=== PATIENT | male | born 1985 | race Caucasian/White ===

== ENCOUNTER 2023-11-07 13:58 | Inpatient (IN) | payer BC, OTHER ==
[~2023-11-07] VITALS: Ht 177.8 cm; Wt 111.0 kg
[2023-11-07] MEDS ORDERED: ONDANSETRON HCL 4 MG/2 ML VIAL IV ONE (14:30)
[2023-11-07 14:41] LABS: Basophils # (auto) 0.1 10 ^3/uL (0-0.2); Basophils % (auto) 1.1 % (0.0-2.0); Eosinophils # (auto) 0.2 10 ^3/uL (0-0.8); Eosinophils % (auto) 2.4 % (0.0-7.0); Hematocrit 36.4 % (41.0-53.0); Hemoglobin 12.3 g/dL (13.5-17.5); Lymphocytes # (auto) 1.1 10 ^3/uL (0.4-5.4); Lymphocytes % (auto) 12.6 % (10.0-50.0); Mean Corpuscular Hemoglobin 30.4 pg (28.0-32.0); Mean Corpuscular Hgb Conc. 33.7 g/dL (32.0-36.0); Mean Corpuscular Volume 90.2 fL (80.0-100.0); Monocytes # (auto) 0.8 10 ^3/uL (0-1.3); Monocytes % (auto) 9.7 % (0.0-12.0); Neutrophils # (auto) 6.3 10 ^3/uL (1.6-8.6); Neutrophils % (auto) 74.2 % (37.0-80.0); Red Blood Cells 4.04 10^6/uL (4.5-5.90); Red Cell Distribution Width 14.4 % (11.8-14.3); White Blood Cell 8.5 10^3/uL (4.4-10.8)
[2023-11-07 15:00] LABS: Alanine Aminotransferase 10 U/L (7-40); Albumin 3.7 g/dL (3.2-4.8); Alkaline Phosphatase 41 U/L (46-116); Anion Gap 7 (5-15); Aspartate Aminotransferase < 8 U/L (13-40); BUN/Creatinine Ratio 7.1 (10.0-20.0); Bilirubin, Total 0.2 mg/dL (0.2-1.0); Blood Urea Nitrogen 46 mg/dL (9-23); Calcium 9.6 mg/dL (8.7-10.4); Carbon Dioxide 27 mmol/L (20-30); Chloride 102 mmol/L (98-107); Glucose 165 mg/dL (74-106); Potassium 4.1 mmol/L (3.5-5.1); Sodium 136 mmol/L (136-145)
[2023-11-07] MEDS: METOCLOPRAMIDE HCL 5MG/ml INJ 2ml VIAL IV ONE (15:09)
[2023-11-07] MEDS: SODIUM CHLORIDE 0.9% 1,000 ML IV ONE (15:09)
[2023-11-07] MEDS: MORPHINE SULFATE INJ 2 MG/ml SYRG IV ONE (15:12)
[2023-11-07] MEDS ORDERED: metroNIDAZOLE 500MG/100ML 100 ML IV ONE (15:30)
[2023-11-07] MEDS: cefTRIAXone 1GM/50ML D5W 50 ML IV ONE (15:44)
[2023-11-07 16:15] VITALS: BP 150/88; PULSE 72; RESP 18; TEMP 98.4; O2SAT 94
[2023-11-07] MEDS ORDERED: DEXTROSE (50%) 50ML SYRG IV PRN (16:30)
[2023-11-07] MEDS ORDERED: ONDANSETRON HCL 4 MG/2 ML VIAL IV PRN (16:30)
[2023-11-07] MEDS ORDERED: ACETAMINOPHEN 325 MG TAB PO PRN (16:30)
[2023-11-07 19:47] VITALS: BP 150/88; PULSE 72; RESP 18; TEMP 98.4; O2SAT 94
[2023-11-07 20:30] VITALS: BP 150/88; PULSE 72; RESP 18; TEMP 98.4; O2SAT 94
[2023-11-07] MEDS ORDERED: FURO80TA3 PO (20:47)
[2023-11-07] MEDS ORDERED: LOSA-535 PO (20:47)
[2023-11-07] MEDS ORDERED: ATOR20TA50 PO (20:47)
[2023-11-07] MEDS ORDERED: GAB100C PO (20:47)
[2023-11-07 21:11] VITALS: BP 148/97; PULSE 77; RESP 18; TEMP 99.2; O2SAT 95
[2023-11-07] MEDS: metroNIDAZOLE 500 MG TAB PO SCH (21:14)
[2023-11-07] MEDS: InsuLIN REG 1unit/0.01ml Soln (100units/ml) SC SCH (23:31)
[2023-11-07] MEDS: ACCU-CHEK COMFORT CURVE STRIP VI SCH (23:33)
[2023-11-07 23:43] LABS: Urine Bacteria FEW /hpf (None Seen); Urine Blood 1+ /uL (Negative); Urine Clarity Clear (Clear); Urine Color Colorless (Yellow); Urine Protein, UAD 2+ (Negative); Urine Specific Gravity 1.007 (1.001-1.035); Urine Sperm PRESENT /hpf (None Seen); Urine Urobilinogen Normal (Negative); Urine WBC 1 /hpf (0 - 3); Urine pH 6.5 (5.0-9.0)
[2023-11-07 23:57] LABS: Amphetamine Screen, Urine Neg (NEGATIVE); Barbiturate Scree,Urine Neg (NEGATIVE); Benzodiazephine Screen, Urine Neg (NEGATIVE); Cannabinoid Screen, Urine Neg (NEGATIVE); Cocaine Screen, Urine Neg (NEGATIVE); Opiate Scree,Urine Neg (NEGATIVE); Phencyclidine Screen, Urine Neg (NEGATIVE)
[2023-11-08] MEDS: HYDROcodone-ACET 5/325MG TAB PO PRN (01:02)
[2023-11-08 06:19] VITALS: BP 120/77; PULSE 75; RESP 18; TEMP 99; O2SAT 95
[2023-11-08 06:59] LABS: Basophils # (auto) 0.1 10 ^3/uL (0-0.2); Basophils % (auto) 1.1 % (0.0-2.0); Eosinophils # (auto) 0.1 10 ^3/uL (0-0.8); Eosinophils % (auto) 1.5 % (0.0-7.0); Hematocrit 37.7 % (41.0-53.0); Hemoglobin 12.4 g/dL (13.5-17.5); Lymphocytes # (auto) 1.5 10 ^3/uL (0.4-5.4); Lymphocytes % (auto) 16.8 % (10.0-50.0); Mean Corpuscular Hemoglobin 30.2 pg (28.0-32.0); Mean Corpuscular Hgb Conc. 32.8 g/dL (32.0-36.0); Mean Corpuscular Volume 91.9 fL (80.0-100.0); Monocytes # (auto) 1.1 10 ^3/uL (0-1.3); Monocytes % (auto) 12.7 % (0.0-12.0); Neutrophils # (auto) 6.1 10 ^3/uL (1.6-8.6); Neutrophils % (auto) 67.9 % (37.0-80.0); Red Cell Distribution Width 14.8 % (11.8-14.3)
[2023-11-08 07:10] LABS: Chloride 104 mmol/L (98-107); Potassium 3.9 mmol/L (3.5-5.1); Sodium 137 mmol/L (136-145)
[2023-11-08 07:11] LABS: Anion Gap 7 (5-15); Carbon Dioxide 26 mmol/L (20-30)
[2023-11-08 07:12] LABS: Calcium 9.2 mg/dL (8.5-10.1)
[2023-11-08 07:17] LABS: Blood Urea Nitrogen 38 mg/dL (9-23); Glucose 144 mg/dL (74-106)
[2023-11-08 09:00] VITALS: BP 133/77; PULSE 71; RESP 18; TEMP 98.6; O2SAT 98
[2023-11-08] MEDS: cefTRIAXone 1GM/50ML D5W 50 ML IV SCH (10:52)
[2023-11-08] MEDS: amLODIPine BESYLATE 5 MG TAB PO SCH (10:56)
[2023-11-08] MEDS ORDERED: MORPHINE SULFATE INJ 2 MG/ml SYRG IV PRN (11:30)
[2023-11-08 11:59] LABS: Magnesium 2.1 mg/dL (1.6-2.6)
[2023-11-08 12:00] LABS: Phosphorus 4.2 mg/dL (2.4-5.1)
[2023-11-08 13:00] VITALS: BP 132/65; PULSE 75; TEMP 98.3; O2SAT 98
[2023-11-08 13:38] LABS: Hepatitis B Surface Antigen Negative (Negative)
[2023-11-08 13:59] LABS: Hepatitis C Antibody Negative (Negative)
[2023-11-08 18:23] VITALS: BP 134/71; PULSE 82; RESP 18; TEMP 98.6; O2SAT 93
[2023-11-08 21:00] VITALS: BP 133/56; PULSE 85; RESP 18; TEMP 99.4; O2SAT 94
[2023-11-09] VITALS (7 sets, daily range): BP systolic 132–156; BP diastolic 58–87; PULSE 75–77; RESP 16–18; TEMP 97.5–98.4; O2SAT 93–97
[2023-11-09 11:50] LABS: Chloride 104 mmol/L (98-107); Potassium 4.3 mmol/L (3.5-5.1); Sodium 138 mmol/L (136-145)
[2023-11-09 11:51] LABS: Anion Gap 7 (5-15); Carbon Dioxide 27 mmol/L (20-30)
[2023-11-09 11:56] LABS: Glucose 108 mg/dL (74-106)
[2023-11-09 11:57] LABS: BUN/Creatinine Ratio 7.3 (10.0-20.0)
[2023-11-09 12:06] LABS: Blood Urea Nitrogen 50 mg/dL (9-23)
[2023-11-09] MEDS: LOSARTAN POTASSIUM 50 MG TAB PO SCH (14:28)
[2023-11-09] MEDS ORDERED: IOHEXOL 350 MG/ML 100ML IJ ONE (16:00)
[2023-11-09] MEDS: ONDANSETRON HCL 4 MG/2 ML VIAL IV PRN (20:24)
[2023-11-09] MEDS: GABAPENTIN 300 MG CAP PO SCH (21:25)
[2023-11-09] MEDS: hydrALAZINE HCL 20 MG/ML VL IV PRN (21:26)
[2023-11-10 01:00] VITALS: BP 132/67; PULSE 74; RESP 18; TEMP 98.1; O2SAT 94
[2023-11-10 05:00] VITALS: BP 121/52; PULSE 77; RESP 18; TEMP 98; O2SAT 96
[2023-11-10 07:26] LABS: Chloride 105 mmol/L (98-107); Potassium 3.8 mmol/L (3.5-5.1); Sodium 138 mmol/L (136-145)
[2023-11-10 07:27] LABS: Anion Gap 7 (5-15); Carbon Dioxide 26 mmol/L (20-30)
[2023-11-10 07:28] LABS: Calcium 8.9 mg/dL (8.5-10.1)
[2023-11-10 07:32] LABS: Glucose 141 mg/dL (74-106)
[2023-11-10 07:33] LABS: BUN/Creatinine Ratio 7.2 (10.0-20.0); Blood Urea Nitrogen 50 mg/dL (9-23)
[2023-11-10 08:00] VITALS: PULSE 77; RESP 20; O2SAT 98
[2023-11-10 08:30] VITALS: BP 149/62; PULSE 73; RESP 20; TEMP 98.4; O2SAT 93
[2023-11-10 12:26] LABS: Erythrocyte Sedimentation Rate 95 mm/hr (0-20)
[2023-11-10] MEDS: PERITONEAL DIALYSIS 2.5% SOLN 2,000 ML IP SCH (12:35)
[2023-11-10 12:59] VITALS: BP 145/81; PULSE 74; RESP 18; TEMP 98.3; O2SAT 94
[2023-11-10] MEDS: MUPIROCIN 2% OINT 15gm or 22gm TOP SCH (14:58)
[2023-11-10 17:39] VITALS: BP 138/83; PULSE 70; RESP 20; TEMP 97.9; O2SAT 97
== END 2023-11-10 18:25 | disposition left against medical advice (07) | DRG 919 ==
LOC: ER 14:01 → OVERFLOW 16:24 → WEST WING 18:11
PROVIDERS: ADMIT Nurse Practitioner; ATTEND Nurse Practitioner Acute Care
DX: T85.611A Breakdown (mechanical) of intraperitoneal dialysis catheter, initial encounter (principal); N18.6 End stage renal disease; N17.9 Acute kidney failure, unspecified; I12.0 Hypertensive chronic kidney disease with stage 5 chronic kidney disease or end stage renal disease; K52.9 Noninfective gastroenteritis and colitis, unspecified; E11.22 Type 2 diabetes mellitus with diabetic chronic kidney disease; Y83.8 Other surgical procedures as the cause of abnormal reaction of the patient, or of later complication, without mention of misadventure at the time of the procedure; E66.9 Obesity, unspecified; Z53.29 Procedure and treatment not carried out because of patient's decision for other reasons; Z88.1 Allergy status to other antibiotic agents; Z79.899 Other long term (current) drug therapy; Z99.2 Dependence on renal dialysis; Z88.0 Allergy status to penicillin; Z83.3 Family history of diabetes mellitus; Y92.89 Other specified places as the place of occurrence of the external cause; Z68.35 Body mass index [BMI] 35.0-35.9, adult
CPT/HCPCS: 36415; 74018; 74176; 76705; 80048; 80053; 80307; 80320; 81001; 82306; 82962; 83036; 83735; 83880; 83970; 84100; 85025; 85652; 86803; 87340; G0378; J2405